=== PATIENT | female | born 1965 | race African-American/Black ===

== ENCOUNTER 2020-07-04 21:41 | Emergency (ER) | payer BC, OTHER ==
[~2020-07-04] VITALS: Ht 157.5 cm; Wt 60.0 kg
[~2020-07-04 21:41] MED LIST: PRIL10; RANI50VI3
[2020-07-04 22:04] VITALS: BP 161/89
[2020-07-04] MEDS ORDERED: ACETAMINOPHEN 325MG TABLET PO STA (22:39)
== END 2020-07-05 00:46 | disposition home or self-care (01) ==
LOC: ER 21:41
DX: S20.219A Contusion of unspecified front wall of thorax, initial encounter (principal); S80.12XA Contusion of left lower leg, initial encounter; V43.62XA Car passenger injured in collision with other type car in traffic accident, initial encounter; Y93.89 Activity, other specified; Y92.488 Other paved roadways as the place of occurrence of the external cause
CPT/HCPCS: 71045; 99283